=== PATIENT | female | born 1960 | race Caucasian/White ===

== ENCOUNTER → 2016-08-03 | Outpatient (CLI) | payer OTHER ==
[~2016-08-03] MED LIST: ASPI32ECTA PO; ASPI81TA85 PO; ATOR40TA PO; FE G325T PO; FOLI1TAB2 PO; FURO20TA2 PO; LISI2.5T3 PO; METO25TA74 PO; MULT1TAB10 PO; POTA1TAB14 PO; RAMI1.25 PO; VITA-130 PO
[2016-08-03 10:48] LABS: ANION GAP 4 MEQ/L (8-16); BLOOD UREA NITROGEN 14 MG/DL (7-18); CALCIUM LEVEL 9.6 MG/DL (8.5-10.1); CARBON DIOXIDE LEVEL 32 MEQ/L (21-32); CHLORIDE LEVEL 106 MEQ/L (98-107); CREATININE FOR GFR 0.72 MG/DL (0.55-1.02); GLOMERULAR FILTRATION RATE > 60.0 (>51); GLUCOSE, FASTING 112 MG/DL (70-105); POTASSIUM SERUM 4.9 MEQ/L (3.5-5.1); SODIUM LEVEL 142 MEQ/L (136-145)
== END ==
LOC: M LAB 07:49
PROVIDERS: ATTEND Internal Medicine Cardiovascular Disease
DX: I10 Essential (primary) hypertension (principal); E87.5 Hyperkalemia

== ENCOUNTER → 2020-07-22 | Outpatient (CLI) | payer OTHER ==
[~2020-07-22] MED LIST changes: +ASPI-255 PO; -ASPI32ECTA PO; -ASPI81TA85 PO; +ASPI81TA86 PO; -ATOR40TA PO; +ATOR40TA75 PO; +FOLI1TAB11 PO; -FOLI1TAB2 PO; +LISI2.5T2 PO; -LISI2.5T3 PO; +METO1TAB32 PO; -METO25TA74 PO; -RAMI1.25 PO; +RAMI1CAP21 PO; -VITA-130 PO; +VITA-243 PO
[2020-07-22 14:33] LABS: BLOOD UREA NITROGEN 18 MG/DL (7-18); CARBON DIOXIDE LEVEL 31 MEQ/L (21-32); CHLORIDE LEVEL 103 MEQ/L (98-107); CHOLESTEROL LEVEL 156 MG/DL (<200); CHOLESTEROL RISK RATIO 3.627 (<5); CREATININE FOR GFR 0.68 MG/DL (0.55-1.30); GLOMERULAR FILTRATION RATE > 60.0 (>45); GLUCOSE, FASTING 112 MG/DL (70-100); HDL CHOLESTEROL 43 MG/DL (>40); LDL CHOLESTEROL 66 MG/DL (<100); NON-HDL-C 113 MG/DL; SODIUM LEVEL 138 MEQ/L (136-145); TRIGLYCERIDES LEVEL 235 MG/DL (<150)
== END ==
LOC: M PLALAB 10:28
PROVIDERS: ATTEND Physician Assistant
DX: I25.10 Atherosclerotic heart disease of native coronary artery without angina pectoris (principal)

== ENCOUNTER → 2020-08-18 | Outpatient (CLI) | payer BC ==
--- NOTE | 2020-08-18 11:03 | REP ---
INDICATION: OCCLUSION AND STENOSIS OF BILATERAL CAROTID ARTERIES COMPARISON: None. TECHNIQUE: Dias scale and color Doppler evaluation using linear high frequency transducer Findings: FINDINGS: Two-dimensional dias scale and color images demonstrate mixed atheromatous plaquing at the distal common carotid artery/carotid bulbs as well as the proximal internal carotid arteries bilaterally. Color Doppler interrogation demonstrates arterial wave patterns with moderate spectral broadening. Normal flow direction is appreciated in the left vertebral artery while the right vertebral artery is not visible. ICA peak systolic velocity: Right 378 cm/s; Left 346 cm/s ICA diastolic velocity: Right 108 cm/s; Left 125 cm/s ECA peak systolic velocity: Right 78 cm/s; Left 108 cm/s CCA peak systolic velocity: Right 94 cm/s; Left 79 cm/s ICA/CCA ratio: Right 4.0 cm/s; Left 4.4 cm/s IMPRESSION: Based on set standards narrowing falls within the greater than 70% range. Consider follow-up and correlation with CTA or MRA. <Electronically signed by Thiago Linder > 08/18/20 1100
== END ==
LOC: M RAD 09:41
PROVIDERS: ATTEND Physician Assistant
DX: I65.23 Occlusion and stenosis of bilateral carotid arteries (principal)